=== PATIENT | female | born 1990 | race Caucasian/White ===

== ENCOUNTER → 2017-07-19 | Outpatient (CLI) | payer OTHER ==
--- NOTE | 2017-07-19 15:44 | 2DMMODE ---
[place] [address] 2 D/M-MODE ECHOCARDIOGRAM Name: DOUG ALLEN Room: [facility]#: [id number] Admission: 07/19/17 Attend Phys: Herve Heredia, Discharge: Date of : 88 Date of Service: 07/19/17 1544 Report #: [id number] THIS REPORT FOR: //name// APPROVED REPORT Study performed: 07/19/2017 15:03:22 EXAM: Comprehensive 2D, Doppler, and color-flow Echocardiogram Patient Location: Out-Patient Status: routine BSA: 1.84 HR: 84 bpm BP: 122/78 mmHg Other Information Study Quality: Good Indications Hypertension/HDD 2D Dimensions LVEF(%): 76.15 (>50%) IVSd: 7.95 (7-11mm) LVOT Diam: 19.52 (18-24mm) LVDd: 46.29 mm PWd: 7.95 (7-11mm) Ascending Ao: 23.71 (22-36mm) LVDs: 25.55 (25-40mm) Aortic Root: 23.14 mm Sultana's LVEF: 76.15 % Volumes Left Atrial Volume (Systole) LA ESV Index: 16.60 mL/m2 Aortic Valve AoV Peak Matthias.: 1.22 m/s AO Peak Gr.: 5.98 mmHg LVOT Max P.07 mmHg AO Mean Gr.: 3.14 mmHg LVOT Mean P.54 mmHg LVOT Max V: 0.88 m/s AO V2 VTI: 21.91 cm LVOT Mean V: 0.57 m/s OSORIO (VTI): 2.28 cm2 LVOT V1 VTI: 16.72 cm Mitral Valve E/A Ratio: 1.10 MV Decel. Time: 225.84 [place] [address] 2 D/M-MODE ECHOCARDIOGRAM Name: DOUG ALLEN Room: [facility]#: [id number] Admission: 07/19/17 Attend Phys: Herve Heredia, Discharge: Date of : 88 Date of Service: 07/19/17 1544 Report #: [id number] MV E Max Matthias.: 0.62 m/s MV PHT: 65.49 ms MVA (PHT): 3.36 cm2 TDI E/Lateral E': 4.13 E/Medial E': 5.17 Medial E' Matthias.: 0.12 m/s Lateral E' Matthias.: 0.15 m/s Pulmonary Valve PV Peak Matthias.: 0.82 m/s PV Peak Gr.: 2.68 mmHg Tricuspid Valve TR Peak Gr.: 14.92 mmHg RVSP: 19.92 mmHg Left Ventricle The left ventricle is normal size. There is normal LV segmental wall motion. There is normal left ventricular wall thickness. Left ventricular systolic function is normal. The left ventricular ejection fraction is within the normal range. LVEF is 55-60%. The left ventricular diastolic function is normal. Right Ventricle The right ventricle is normal size. The right ventricular systolic function is normal. Atria The left atrium size is normal. The right atrium size is normal. Aortic Valve The aortic valve is normal in structure. No aortic regurgitation is present. There is no aortic valvular stenosis. Mitral Valve The mitral valve is normal in structure. There is no mitral valve regurgitation noted. No evidence of mitral valve stenosis. Tricuspid Valve The tricuspid valve is normal in structure. Mild tricuspid regurgitation. The RVSP is _19.9 mmHg. Pulmonic Valve The pulmonary valve is normal in structure. [place] [address] 2 D/M-MODE ECHOCARDIOGRAM Name: DOUG ALLEN Room: [facility]#: [id number] Admission: 07/19/17 Attend Phys: Herve Heredia, Discharge: Date of : 88 Date of Service: 07/19/17 1544 Report #: [id number] Great Vessels The aortic root is normal in size. IVC is normal in size and collapses with >50% inspiration Pericardium There is no pericardial effusion. <Conclusion> LVEF is 55-60%. There is normal LV segmental wall motion. There is no aortic valvular stenosis. No aortic regurgitation is present. Mild tricuspid regurgitation. The RVSP is 19.9 mmHg. <ELECTRONICALLY SIGNED> By: Camilo Davidson MD, FACC 07/19/17 1544 1544 1544 Camilo Davidson MD, FACC /INF
== END ==
LOC: M.CRD 14:53
DX: I07.1 Rheumatic tricuspid insufficiency (principal); I10 Essential (primary) hypertension

== ENCOUNTER 2020-03-14 10:04 | Emergency (ER) | payer OTHER ==
[~2020-03-14] VITALS: Ht 162.6 cm; Wt 81.7 kg
[2020-03-14 10:21] LABS: URINE BILIRUBIN NEGATIVE (Negative); URINE BLOOD NEGATIVE (Negative); URINE CLARITY CLEAR; URINE COLOR YELLOW; URINE GLUCOSE-RANDOM NEGATIVE (Negative); URINE KETONES NEGATIVE (Negative); URINE LEUKOCYTES-REFLEX NEGATIVE (Negative); URINE NITRITE-REFLEX NEGATIVE (Negative); URINE PROTEIN NEGATIVE (Negative); URINE UROBILINOGEN 0.2 E.U./dl (0.2-1.0)
[2020-03-14] MEDS ORDERED: GLUCOPHAGE1000 MG PO (10:21)
[2020-03-14] MEDS ORDERED: ENBRACE HR SOF1 EACH PO (10:21)
[2020-03-14] MEDS ORDERED: CHILDREN'S ASPI81 M1 PO (10:21)
[2020-03-14] MEDS ORDERED: LABETALOL HCL100 MG PO (10:21)
[2020-03-14 11:08] LABS: HEMATOCRIT 42.5 % (37.0-47.0); MCH 27.8 pg (26.0-34.0); MCV 84.1 fL (80.0-100.0); MPV 6.6 fl. (7.2-11.1); RBC 5.06 mil/uL (4.20-5.00); RDW-CV 13.8 % (10.5-14.5); WBC 11.2 thou/uL (4.0-11.0)
[2020-03-14 11:11] LABS: CALCIUM 8.5 mg/dL (8.5-10.1); CREATININE 0.7 mg/dL (0.6-1.3); POTASSIUM 3.8 mmol/L (3.5-5.1)
[2020-03-14 12:52] VITALS: BP 125/70
== END 2020-03-14 12:53 | disposition home or self-care (01) ==
LOC: M.ERS 10:04
PROVIDERS: Personal Emergency Response Attendant
DX: O26.891 Other specified pregnancy related conditions, first trimester (principal); R10.32 Left lower quadrant pain; I10 Essential (primary) hypertension; Z3A.01 Less than 8 weeks gestation of pregnancy; Z91.040 Latex allergy status; Z98.890 Other specified postprocedural states